=== PATIENT | male | born 1985 | race African-American/Black ===

== ENCOUNTER 2023-02-07 10:09 | Observation (INO) | payer BC ==
[2023-02-07] MEDS ORDERED: Iopamidol-370 76% 500 ML MDV (1 ML CHARGE) ONE (10:35)
[2023-02-07 10:36] LABS: #Eosinphils 0.1 thou/uL (0.0-0.7); #Monocytes 0.5 thou/uL (0.11-0.59); #Neutrophils 2.7 thou/uL (1.40-6.50); %Basophils 0.4 % (0.0-1.0); %Eosinophils 1.6 % (0.0-10.0); %Lymphocytes 32.6 % (21.0-51.0); %Monocytes 9.5 % (0.0-10.0); %Neutrophils 55.5 % (42.0-75.0); Hematocrit 46.3 % (42.0-52.0); Hemoglobin 15.7 g/dL (14.0-18.0); Mean Corpuscular HGB CONC 33.9 g/dL (32.0-36.0); Mean Corpuscular Hemoglobin 31.7 pg (27.0-31.0); Mean Corpuscular Volume 93.3 fl (78.0-98.0); Mean Platelet Volume 9.4 fL (7.4-10.4); Platelet Count 242 10x3/uL (130-400); RBC Distribution Width 12.4 % (11.5-14.5); Red Blood Cell (RBC) Count 4.96 mill/uL (4.70-6.10); White Blood Cell (WBC) Count 4.9 10x3/uL (4.8-10.8)
[2023-02-07 10:51] LABS: Prothrombin Time 13.1 sec (12.0-14.7)
[2023-02-07 11:04] LABS: Troponin I Less than 0.010 ng/mL (< 0.028)
[2023-02-07] MEDS ORDERED: Aspirin Chewable 81 MG TAB ONE ×2 (11:05→11:08)
[2023-02-07 11:06] LABS: ALT (SGPT) 22 U/L (8-55); AST (SGOT) 27 U/L (5-34); Albumin 4.4 g/dL (3.5-5.0); Alkaline Phosphatase 60 U/L (40-110); Anion Gap 15 mmol/L (10-20); BUN (Urea Nitrogen) 4 mg/dL (8.9-20.6); Bilirubin, Total 0.3 mg/dL (0.2-1.2); Calc. Creatinine Clearance 0 mL/min (70-130); Calcium 9.9 mg/dL (7.8-10.44); Carbon Dioxide 22 mmol/L (22-29); Chloride 106 mmol/L (98-107); Estimated GFR 84; Globulin 3.9 g/dL (2.4-3.5); Glucose 89 mg/dL (70-105); Potassium 4.8 mmol/L (3.5-5.1); Protein, Total 8.3 g/dL (6.0-8.3); Sodium 138 mmol/L (136-145)
[2023-02-07 11:18] LABS: PTT 21.4 sec (22.9-36.1)
[2023-02-07 11:35] LABS: Amphetamine Not Detected (NotDetected); Barbiturates Screen Not Detected (NotDetected); Benzodiazepine Screen Not Detected (NotDetected); Cocaine Metabolite Screen Not Detected (NotDetected); Methadone Not Detected (NotDetected); Methamphetamine Not Detected (NotDetected); Opiate Screen Not Detected (NotDetected); Oxycodone Screen Not Detected (NotDetected); Phencyclidine (PCP) Not Detected (NotDetected); THC/Cannabinoid Screen Not Detected (NotDetected); Tricyclic Screen Not Detected (NotDetected)
[2023-02-07] MEDS ORDERED: Acetaminophen 500 MG TAB ONE (11:35)
[2023-02-07] MEDS ORDERED: Metoclopramide HCl 10 MG/2 ML VIAL ONE (11:35)
[2023-02-07] MEDS ORDERED: Ondansetron ODT 4 MG TAB PO PRN (11:40)
[2023-02-07 12:04] LABS: Acetaminophen Less than 10 mcg/mL (10.0-30.0); Alcohol Less than 10.0 mg/dL (Less than 10); Salicylate Less than 8.0 mg/dL (15.0-30.0)
[2023-02-07 12:58] VITALS: BMI 28.3
[2023-02-07] MEDS: Acetaminophen 325 MG TAB PO PRN (20:30)
[2023-02-07] MEDS: Atorvastatin Calcium 40 MG TAB PO SCH (20:31)
[2023-02-08] MEDS: Acetaminophen 325 MG TAB PO PRN ×4 (03:46→20:38)
[2023-02-08 05:35] LABS: Cardiac Risk 3.1 (Less than 4.5)
[2023-02-08] MEDS: Aspirin 81 mg Enteric Coated Tablet PO SCH (08:46)
[2023-02-08] MEDS: Amlodipine 10 MG TAB PO SCH (08:46)
[2023-02-08] MEDS: Atorvastatin Calcium 40 MG TAB PO SCH (20:38)
[2023-02-09] MEDS: Acetaminophen 325 MG TAB PO PRN (01:19)
[2023-02-09] MEDS ORDERED: Metoclopramide HCl 10 MG TAB PO PRN (08:00)
[2023-02-09] MEDS: Amlodipine 10 MG TAB PO SCH (08:51)
[2023-02-09] MEDS: Aspirin 81 mg Enteric Coated Tablet PO SCH (08:51)
[2023-02-09 12:26] VITALS: BP 134/68; TEMP 97.7
== END 2023-02-09 14:28 | disposition home or self-care (01) ==
LOC: ERS 10:09 → ERHOLD 11:34 → 2SE 16:06
PROVIDERS: ADMIT Internal Medicine; ATTEND Internal Medicine
DX: R29.90 Unspecified symptoms and signs involving the nervous system (principal); R53.1 Weakness; I08.8 Other rheumatic multiple valve diseases; E78.5 Hyperlipidemia, unspecified; I10 Essential (primary) hypertension; Z86.73 Personal history of transient ischemic attack (TIA), and cerebral infarction without residual deficits; Z79.82 Long term (current) use of aspirin; Z79.899 Other long term (current) drug therapy
CPT/HCPCS: 0042T; 36415; 70450; 70496; 70498; 70551; 71045; 80053; 80061; 80306; 80307; 84443; 84484; 85025; 85610; 85730; 86140; 93005; 93306; 96361; 96365; J1650; J2765; Q9967